=== PATIENT | male | born 1980 | race Caucasian/White ===

== ENCOUNTER 2019-01-19 21:53 | Emergency (ER) | payer MEDICAID ==
[~2019-01-19] VITALS: Ht 177.8 cm; Wt 113.6 kg
[2019-01-19 21:56] VITALS: Ht 177.8 cm; Wt 113.6 kg
[2019-01-19] MEDS ORDERED: PRAVACHOL80 MG PO (21:58)
[2019-01-19] MEDS ORDERED: OMEPRAZOLE40 MG PO (21:58)
[2019-01-19] MEDS ORDERED: HYDROCODON-ACE1 EA10 PO (21:58)
[2019-01-19] MEDS ORDERED: TOPROL XL100 MG PO (21:58)
[2019-01-19 22:26] LABS: BASOPHILS 0.1 % (0-2); EOSINOPHILS 2.2 % (0-7); HEMATOCRIT 47.2 % (42.0-54.0); HEMOGLOBIN 16.5 g/dL (13.5-17.5); IMMATURE GRANULOCYTES 0.1 % (0-5); LYMPHOCYTES 25.2 % (15-50); MCH 28.6 pg (26.0-34.0); MCV 81.8 fL (80.0-100.0); MEAN PLATELET VOLUME 9.6 fL (7.4-10.4); NEUTROPHILS 65.4 % (40-80); PLATELET COUNT 191 10x3/uL (130-400); RBC 5.77 10x6/uL (4.20-6.10); RDW 13.9 % (11.5-14.5)
[2019-01-19 22:38] LABS: COLOR YELLOW (YELLOW)
[2019-01-19 22:39] LABS: APPEARANCE CLEAR (CLEAR); BILIRUBIN NEGATIVE (NEGATIVE); GLUCOSE NEGATIVE (NEGATIVE); KETONE NEGATIVE (NEGATIVE); NITRITE NEGATIVE (NEGATIVE); PROTEIN NEGATIVE (NEGATIVE); SPECIFIC GRAVITY 1.015 (1.005-1.020); UROBILINOGEN NORMAL (NORMAL)
[2019-01-19 22:42] LABS: ALBUMIN 3.8 g/dL (3.4-5.0); ALKALINE PHOSPHATASE 56 U/L (46-116); ALT (SGPT) 84 U/L (10-68); BILIRUBIN - TOTAL 0.89 mg/dL (0.2-1.3); CALC OSMOLALITY 276 mosm/kg (275-300); CALCIUM 9.1 mg/dL (8.5-10.1); CARBON DIOXIDE 27.6 mmol/L (21.0-32.0); CHLORIDE - SERUM 102 mmol/L (98-107); CREATININE - SERUM 1.4 mg/dL (0.6-1.3); GLUCOSE 118 mg/dL (74-106); POTASSIUM - SERUM 3.6 mmol/L (3.5-5.1); PROTEIN - SERUM 6.9 g/dL (6.4-8.2); SODIUM 138 mmol/L (136-145); UREA NITROGEN 12 mg/dL (7-18); eGFR NON AFRICAN AMERICAN 61 mL/min (90-120)
[2019-01-19 22:49] LABS: AMYLASE - SERUM 49 U/L (25-115); LIPASE 115 U/L (73-393); TROPONIN-I < 0.017 ng/mL (0.000-0.060)
[2019-01-20] MEDS ORDERED: ZOFRAN ODT4 MG/UDTAB PO (02:18)
[2019-01-20] MEDS ORDERED: FLOMAX0.4 MG PO (02:18)
[2019-01-20] MEDS ORDERED: HYDROCODON-ACE1 EA10 PO (02:18)
[2019-01-20 02:50] VITALS: BP 134/73
== END 2019-01-20 02:50 | disposition home or self-care (01) ==
LOC: D.ER 21:53
PROVIDERS: Family Medicine
DX: R10.9 Unspecified abdominal pain (principal); N20.1 Calculus of ureter; I10 Essential (primary) hypertension; E78.5 Hyperlipidemia, unspecified

== ENCOUNTER 2019-02-09 00:48 | Emergency (ER) | payer MEDICAID ==
[~2019-02-09] VITALS: Ht 177.8 cm; Wt 113.6 kg
[~2019-02-09 00:48] MED LIST: FLOMAX0.4 MG PO; HYDROCODON-ACE1 EA10 PO; OMEPRAZOLE40 MG PO; PRAVACHOL80 MG PO; TOPROL XL100 MG PO; ZOFRAN ODT4 MG/UDTAB PO
[2019-02-09 00:54] VITALS: Ht 177.8 cm; Wt 113.6 kg
[2019-02-09] MEDS ORDERED: BUSPAR 15 MG TA15 MG PO (00:57)
[2019-02-09 01:20] LABS: BASOPHILS 0.3 % (0-2); EOSINOPHILS 1.9 % (0-7); HEMATOCRIT 45.6 % (42.0-54.0); HEMOGLOBIN 15.5 g/dL (13.5-17.5); IMMATURE GRANULOCYTES 0.1 % (0-5); LYMPHOCYTES 24.7 % (15-50); MCH 28.1 pg (26.0-34.0); MCV 82.6 fL (80.0-100.0); MEAN PLATELET VOLUME 9.5 fL (7.4-10.4); MONOCYTES 6.5 % (2-11); NEUTROPHILS 66.5 % (40-80); PLATELET COUNT 153 10x3/uL (130-400); RBC 5.52 10x6/uL (4.20-6.10); RDW 13.3 % (11.5-14.5); WBC 7.4 10x3/uL (4.8-10.8)
[2019-02-09] MEDS ORDERED: PROTONIX40 MG PO (01:26)
[2019-02-09 01:27] LABS: APTT 29.2 SECONDS (22.8-39.4); INR 1.02 (0.85-1.17); PROTIME 12.9 SECONDS (11.6-15.0)
[2019-02-09 01:33] LABS: ALBUMIN 3.8 g/dL (3.4-5.0); ALKALINE PHOSPHATASE 50 U/L (46-116); ALT (SGPT) 45 U/L (10-68); BILIRUBIN - TOTAL 0.68 mg/dL (0.2-1.3); CALC OSMOLALITY 277 mosm/kg (275-300); CARBON DIOXIDE 25.9 mmol/L (21.0-32.0); CHLORIDE - SERUM 105 mmol/L (98-107); CREATININE - SERUM 1.5 mg/dL (0.6-1.3); GLUCOSE 106 mg/dL (74-106); POTASSIUM - SERUM 3.5 mmol/L (3.5-5.1); PROTEIN - SERUM 6.8 g/dL (6.4-8.2); SODIUM 139 mmol/L (136-145); UREA NITROGEN 12 mg/dL (7-18); eGFR NON AFRICAN AMERICAN 56 mL/min (90-120)
[2019-02-09 01:45] LABS: CKMB 0.3 U/L (0.0-3.6); CREATINE KINASE 64 UL (21-232); MAGNESIUM - SERUM 1.9 mg/dL (1.8-2.4)
[2019-02-09 01:53] LABS: TROPONIN-I < 0.017 ng/mL (0.000-0.060)
[2019-02-09 02:45] VITALS: BP 133/86
== END 2019-02-09 02:37 | disposition home or self-care (01) ==
LOC: D.ER 00:48
PROVIDERS: Family Medicine
DX: R07.89 Other chest pain (principal); K21.9 Gastro-esophageal reflux disease without esophagitis; I10 Essential (primary) hypertension

== ENCOUNTER 2019-03-13 02:47 | Emergency (ER) | payer MEDICAID ==
[~2019-03-13] VITALS: Ht 177.8 cm; Wt 113.6 kg
[~2019-03-13 02:47] MED LIST changes: +BUSPAR 15 MG TA15 MG PO; +PROTONIX40 MG PO
[2019-03-13 02:52] VITALS: Ht 177.8 cm; Wt 113.6 kg
[2019-03-13 03:34] LABS: BASOPHILS 0.2 % (0-2); EOSINOPHILS 1.4 % (0-7); HEMATOCRIT 48.3 % (42.0-54.0); HEMOGLOBIN 16.6 g/dL (13.5-17.5); IMMATURE GRANULOCYTES 0.1 % (0-5); LYMPHOCYTES 17.7 % (15-50); MCH 27.7 pg (26.0-34.0); MCHC 34.4 g/dL (31.0-37.0); MCV 80.6 fL (80.0-100.0); MEAN PLATELET VOLUME 9.4 fL (7.4-10.4); MONOCYTES 6.6 % (2-11); RBC 5.99 10x6/uL (4.20-6.10); RDW 12.9 % (11.5-14.5); WBC 9.7 10x3/uL (4.8-10.8)
[2019-03-13 03:35] LABS: PLATELET COUNT 186 10x3/uL (130-400)
[2019-03-13 03:51] LABS: ALBUMIN 4.1 g/dL (3.4-5.0); ALKALINE PHOSPHATASE 52 U/L (46-116); ALT (SGPT) 44 U/L (10-68); BILIRUBIN - TOTAL 0.91 mg/dL (0.2-1.3); CALC OSMOLALITY 277 mosm/kg (275-300); CALCIUM 9.2 mg/dL (8.5-10.1); CARBON DIOXIDE 30.6 mmol/L (21.0-32.0); CHLORIDE - SERUM 102 mmol/L (98-107); CREATININE - SERUM 1.4 mg/dL (0.6-1.3); GLUCOSE 124 mg/dL (74-106); POTASSIUM - SERUM 3.7 mmol/L (3.5-5.1); SODIUM 140 mmol/L (136-145); UREA NITROGEN 8 mg/dL (7-18); eGFR NON AFRICAN AMERICAN 61 mL/min (90-120)
[2019-03-13 03:54] LABS: APPEARANCE CLEAR (CLEAR); BILIRUBIN NEGATIVE (NEGATIVE); COLOR YELLOW (YELLOW); GLUCOSE NEGATIVE (NEGATIVE); KETONE NEGATIVE (NEGATIVE); NITRITE NEGATIVE (NEGATIVE); PROTEIN NEGATIVE (NEGATIVE); UROBILINOGEN NORMAL (NORMAL)
[2019-03-13 03:58] LABS: AMYLASE - SERUM 48 U/L (25-115); LIPASE 101 U/L (73-393)
[2019-03-13 03:59] LABS: TROPONIN-I < 0.017 ng/mL (0.000-0.060)
[2019-03-13 04:51] VITALS: BP 135/78
== END 2019-03-13 04:52 | disposition home or self-care (01) ==
LOC: D.ER 02:47
PROVIDERS: Emergency Medicine
DX: N20.0 Calculus of kidney (principal)

== ENCOUNTER 2019-04-11 05:13 | Emergency (ER) | payer MEDICAID ==
[~2019-04-11] VITALS: Ht 177.8 cm; Wt 111.4 kg
[2019-04-11 05:17] VITALS: Ht 177.8 cm; Wt 111.4 kg
[2019-04-11] MEDS ORDERED: HYDROCODON-ACE1 EAC2 PO (05:41)
[2019-04-11] MEDS ORDERED: ZOFRAN ODT4 MG/UDTAB PO (05:42)
[2019-04-11 06:07] VITALS: BP 138/75
== END 2019-04-11 06:06 | disposition home or self-care (01) ==
LOC: D.ER 05:13
DX: N23 Unspecified renal colic (principal)

== ENCOUNTER 2019-04-19 21:03 | Emergency (ER) | payer MEDICAID ==
[~2019-04-19] VITALS: Ht 177.8 cm; Wt 109.1 kg
[~2019-04-19 21:03] MED LIST changes: +HYDROCODON-ACE1 EAC2 PO
[2019-04-19 21:18] VITALS: Ht 177.8 cm; Wt 109.1 kg
[2019-04-19 21:27] LABS: BASOPHILS 0.1 % (0-2); HEMATOCRIT 48.2 % (42.0-54.0); HEMOGLOBIN 16.9 g/dL (13.5-17.5); IMMATURE GRANULOCYTES 0.2 % (0-5); MCH 28.3 pg (26.0-34.0); MCHC 35.1 g/dL (31.0-37.0); MCV 80.6 fL (80.0-100.0); MEAN PLATELET VOLUME 9.5 fL (7.4-10.4); MONOCYTES 6.6 % (2-11); NEUTROPHILS 73.1 % (40-80); PLATELET COUNT 165 10x3/uL (130-400); RBC 5.98 10x6/uL (4.20-6.10); WBC 9.8 10x3/uL (4.8-10.8)
[2019-04-19 21:36] LABS: APTT 28.9 SECONDS (22.8-39.4); INR 1.04 (0.85-1.17); PROTIME 13.1 SECONDS (11.6-15.0)
[2019-04-19 21:40] LABS: ALBUMIN 4.3 g/dL (3.4-5.0); ALKALINE PHOSPHATASE 62 U/L (46-116); ALT (SGPT) 47 U/L (10-68); BILIRUBIN - TOTAL 0.93 mg/dL (0.2-1.3); CALC OSMOLALITY 279 mosm/kg (275-300); CALCIUM 9.2 mg/dL (8.5-10.1); CARBON DIOXIDE 30.1 mmol/L (21.0-32.0); CHLORIDE - SERUM 103 mmol/L (98-107); CREATININE - SERUM 1.6 mg/dL (0.6-1.3); GLUCOSE 94 mg/dL (74-106); POTASSIUM - SERUM 3.4 mmol/L (3.5-5.1); PROTEIN - SERUM 7.4 g/dL (6.4-8.2); SODIUM 141 mmol/L (136-145); UREA NITROGEN 9 mg/dL (7-18); eGFR NON AFRICAN AMERICAN 52 mL/min (90-120)
[2019-04-19 21:51] LABS: CKMB 0.2 U/L (0.0-3.6); CREATINE KINASE 71 UL (21-232); TROPONIN-I < 0.017 ng/mL (0.000-0.060)
[2019-04-19 22:09] LABS: UDS - AMPHET NEGATIVE QUAL (NEGATIVE); UDS - BARB NEGATIVE QUAL (NEGATIVE); UDS - BENZO NEGATIVE QUAL (NEGATIVE); UDS - COCAINE NEGATIVE QUAL (NEGATIVE); UDS - OPIATE NEGATIVE QUAL (NEGATIVE); UDS - PCP NEGATIVE QUAL (NEGATIVE); UDS - THC NEGATIVE QUAL (NEGATIVE)
[2019-04-19 22:23] LABS: APPEARANCE CLEAR (CLEAR); BILIRUBIN NEGATIVE (NEGATIVE); COLOR YELLOW (YELLOW); GLUCOSE NEGATIVE (NEGATIVE); KETONE NEGATIVE (NEGATIVE); NITRITE NEGATIVE (NEGATIVE); PROTEIN NEGATIVE (NEGATIVE); SPECIFIC GRAVITY 1.015 (1.005-1.020); UROBILINOGEN NORMAL (NORMAL)
[2019-04-20 00:14] VITALS: BP 125/75
== END 2019-04-20 00:15 | disposition home or self-care (01) ==
LOC: D.ER 21:03
PROVIDERS: Emergency Medicine
DX: R00.2 Palpitations (principal); F41.9 Anxiety disorder, unspecified; K21.9 Gastro-esophageal reflux disease without esophagitis

== ENCOUNTER 2019-05-29 02:00 | Emergency (ER) | payer MEDICAID ==
[~2019-05-29] VITALS: Ht 177.8 cm; Wt 109.1 kg
[2019-05-29 02:03] VITALS: Ht 177.8 cm; Wt 109.1 kg
[2019-05-29 02:19] LABS: BASOPHILS 0.1 % (0-2); EOSINOPHILS 1.3 % (0-7); HEMATOCRIT 51.7 % (42.0-54.0); HEMOGLOBIN 17.9 g/dL (13.5-17.5); IMMATURE GRANULOCYTES 0.2 % (0-5); LYMPHOCYTES 21.4 % (15-50); MCH 27.8 pg (26.0-34.0); MCHC 34.6 g/dL (31.0-37.0); MCV 80.3 fL (80.0-100.0); MEAN PLATELET VOLUME 10.1 fL (7.4-10.4); MONOCYTES 6.4 % (2-11); NEUTROPHILS 70.6 % (40-80); PLATELET COUNT 174 10x3/uL (130-400); RBC 6.44 10x6/uL (4.20-6.10); RDW 14.1 % (11.5-14.5); WBC 9.4 10x3/uL (4.8-10.8)
[2019-05-29 02:20] LABS: APPEARANCE HAZY (CLEAR); BILIRUBIN NEGATIVE (NEGATIVE); COLOR YELLOW (YELLOW); GLUCOSE NEGATIVE (NEGATIVE); KETONE SMALL mg/dL (NEGATIVE); NITRITE NEGATIVE (NEGATIVE); PROTEIN NEGATIVE (NEGATIVE); SPECIFIC GRAVITY 1.015 (1.005-1.020); UROBILINOGEN NORMAL (NORMAL)
[2019-05-29 02:32] LABS: ALBUMIN 4.4 g/dL (3.4-5.0); ALKALINE PHOSPHATASE 62 U/L (46-116); ALT (SGPT) 36 U/L (10-68); BILIRUBIN - TOTAL 1.22 mg/dL (0.2-1.3); CALC OSMOLALITY 281 mosm/kg (275-300); CALCIUM 9.4 mg/dL (8.5-10.1); CHLORIDE - SERUM 102 mmol/L (98-107); CREATININE - SERUM 1.5 mg/dL (0.6-1.3); GLUCOSE 109 mg/dL (74-106); POTASSIUM - SERUM 4.1 mmol/L (3.5-5.1); PROTEIN - SERUM 7.1 g/dL (6.4-8.2); SODIUM 141 mmol/L (136-145); UREA NITROGEN 12 mg/dL (7-18); eGFR NON AFRICAN AMERICAN 56 mL/min (90-120)
[2019-05-29 02:35] LABS: AMYLASE - SERUM 53 U/L (25-115); LIPASE 95 U/L (73-393); TROPONIN-I < 0.017 ng/mL (0.000-0.060)
[2019-05-29 03:59] VITALS: BP 129/85
== END 2019-05-29 03:59 | disposition home or self-care (01) ==
LOC: D.ER 02:00
PROVIDERS: Family Medicine
DX: R07.89 Other chest pain (principal)

== ENCOUNTER 2019-07-15 02:03 | Emergency (ER) | payer MEDICAID ==
[~2019-07-15] VITALS: Ht 177.8 cm; Wt 104.5 kg
[2019-07-15 02:07] VITALS: Ht 177.8 cm; Wt 104.5 kg
[2019-07-15] MEDS ORDERED: AMOXICILLIN875 MG PO (02:08)
[2019-07-15] MEDS ORDERED: MUCINEX600 MG PO (02:09)
[2019-07-15] MEDS ORDERED: MYCOSTATIN500000 UNI PO (02:09)
[2019-07-15] MEDS ORDERED: KEFLEX500 MG PO (02:24)
[2019-07-15] MEDS ORDERED: ALBUTEROL SULF8.5 GM INH (02:42)
[2019-07-15 02:50] VITALS: BP 140/82
== END 2019-07-15 02:50 | disposition home or self-care (01) ==
LOC: D.ER 02:03
DX: J01.90 Acute sinusitis, unspecified (principal)

== ENCOUNTER 2019-08-06 20:53 | Emergency (ER) | payer MEDICAID ==
[~2019-08-06] VITALS: Ht 177.8 cm; Wt 106.6 kg
[~2019-08-06 20:53] MED LIST changes: +ALBUTEROL SULF8.5 GM INH; +AMOXICILLIN875 MG PO; +KEFLEX500 MG PO; +MUCINEX600 MG PO; +MYCOSTATIN500000 UNI PO
[2019-08-06 21:03] VITALS: Ht 177.8 cm; Wt 106.6 kg
[2019-08-06] MEDS ORDERED: OMEPRAZOLE40 MG PO (21:06)
[2019-08-06 21:38] LABS: BASOPHILS 0.1 % (0-2); HEMATOCRIT 52.3 % (42.0-54.0); HEMOGLOBIN 17.6 g/dL (13.5-17.5); IMMATURE GRANULOCYTES 0.2 % (0-5); LYMPHOCYTES 22.9 % (15-50); MCHC 33.7 g/dL (31.0-37.0); MCV 86.3 fL (80.0-100.0); MEAN PLATELET VOLUME 9.1 fL (7.4-10.4); MONOCYTES 6.4 % (2-11); NEUTROPHILS 69.4 % (40-80); PLATELET COUNT 181 10x3/uL (130-400); RBC 6.06 10x6/uL (4.20-6.10); RDW 14.3 % (11.5-14.5); WBC 11.1 10x3/uL (4.8-10.8)
[2019-08-06 21:46] LABS: APTT 30.7 SECONDS (22.8-39.4); INR 1.06 (0.85-1.17); PROTIME 13.3 SECONDS (11.6-15.0)
[2019-08-06 22:35] LABS: CALC OSMOLALITY 276 mosm/kg (275-300); CALCIUM 8.7 mg/dL (8.5-10.1); CARBON DIOXIDE 27.6 mmol/L (21.0-32.0); CHLORIDE - SERUM 103 mmol/L (98-107); CREATININE - SERUM 1.4 mg/dL (0.6-1.3); GLUCOSE 116 mg/dL (74-106); POTASSIUM - SERUM 4.1 mmol/L (3.5-5.1); SODIUM 139 mmol/L (136-145); UREA NITROGEN 8 mg/dL (7-18); eGFR NON AFRICAN AMERICAN 61 mL/min (90-120)
[2019-08-06 22:53] LABS: ALBUMIN 3.4 g/dL (3.4-5.0); ALKALINE PHOSPHATASE 61 U/L (46-116); ALT (SGPT) 68 U/L (10-68); BILIRUBIN - TOTAL 0.71 mg/dL (0.2-1.3); CKMB 0.5 U/L (0.0-3.6); CREATINE KINASE 41 UL (21-232); MAGNESIUM - SERUM 1.8 mg/dL (1.8-2.4); PROTEIN - SERUM 6.6 g/dL (6.4-8.2); TROPONIN-I < 0.017 ng/mL (0.000-0.060)
[2019-08-06 23:40] VITALS: BP 116/74
== END 2019-08-06 23:40 | disposition home or self-care (01) ==
LOC: D.ER 20:53
PROVIDERS: Family Medicine
DX: R07.9 Chest pain, unspecified (principal); R11.0 Nausea; E78.5 Hyperlipidemia, unspecified; J04.0 Acute laryngitis; I10 Essential (primary) hypertension

== ENCOUNTER 2020-01-03 01:44 | Emergency (ER) | payer MEDICAID ==
[~2020-01-03] VITALS: Ht 177.8 cm; Wt 109.1 kg
[2020-01-03 02:08] VITALS: Ht 177.8 cm; Wt 109.1 kg
[2020-01-03] MEDS ORDERED: PEPCID AC20 MG PO (02:10)
[2020-01-03] MEDS ORDERED: CLARITIN 10 MG10 MG PO (02:10)
[2020-01-03] MEDS ORDERED: KLOR-CON M2020 MEQ PO (02:10)
[2020-01-03 02:34] LABS: BASOPHILS 0.3 % (0-2); EOSINOPHILS 2.5 % (0-7); HEMATOCRIT 53.8 % (42.0-54.0); HEMOGLOBIN 18.4 g/dL (13.5-17.5); IMMATURE GRANULOCYTES 0.1 % (0-5); LYMPHOCYTES 32.5 % (15-50); MCH 30.8 pg (26.0-34.0); MCHC 34.2 g/dL (31.0-37.0); MEAN PLATELET VOLUME 9.2 fL (7.4-10.4); MONOCYTES 6.6 % (2-11); PLATELET COUNT 169 10x3/uL (130-400); RBC 5.98 10x6/uL (4.20-6.10); RDW 12.5 % (11.5-14.5); WBC 7.9 10x3/uL (4.8-10.8)
[2020-01-03 02:43] LABS: ANION GAP 11.7 mmol/L (8-16); CALCIUM 9.1 mg/dL (8.5-10.1); CARBON DIOXIDE 29.2 mmol/L (21.0-32.0); CREATININE - SERUM 1.5 mg/dL (0.6-1.3); POTASSIUM - SERUM 3.9 mmol/L (3.5-5.1)
[2020-01-03 02:50] LABS: BILIRUBIN NEGATIVE (NEGATIVE); GLUCOSE NEGATIVE (NEGATIVE); KETONE NEGATIVE (NEGATIVE); NITRITE NEGATIVE (NEGATIVE); UROBILINOGEN NORMAL (NORMAL)
[2020-01-03 02:50] LABS: ALBUMIN 4.2 g/dL (3.4-5.0); BILIRUBIN - TOTAL 0.75 mg/dL (0.2-1.3); PROTEIN - SERUM 7.3 g/dL (6.4-8.2)
[2020-01-03] MEDS ORDERED: TORADOL10 MG PO (03:23)
[2020-01-03 04:04] VITALS: BP 118/78
== END 2020-01-03 04:04 | disposition home or self-care (01) ==
LOC: D.ER 01:44
PROVIDERS: Emergency Medicine
DX: R10.31 Right lower quadrant pain (principal); N20.0 Calculus of kidney; I10 Essential (primary) hypertension; E78.5 Hyperlipidemia, unspecified; K21.9 Gastro-esophageal reflux disease without esophagitis

== ENCOUNTER 2020-02-02 05:21 | Emergency (ER) | payer MEDICAID ==
[~2020-02-02] VITALS: Ht 177.8 cm; Wt 113.4 kg
[~2020-02-02 05:21] MED LIST changes: +CLARITIN 10 MG10 MG PO; +KLOR-CON M2020 MEQ PO; +PEPCID AC20 MG PO; +TORADOL10 MG PO
[2020-02-02 05:32] VITALS: Ht 177.8 cm; Wt 113.4 kg
[2020-02-02] MEDS ORDERED: AUGMENTIN 875-11 TAB PO (05:54)
[2020-02-02] MEDS ORDERED: PREDNISONE20 MG PO (05:54)
[2020-02-02] MEDS ORDERED: FLUTICASONE PRO16 GM NASAL (05:54)
[2020-02-02 06:08] VITALS: BP 147/81
== END 2020-02-02 06:08 | disposition home or self-care (01) ==
LOC: D.ER 05:21
DX: J01.90 Acute sinusitis, unspecified (principal); J33.9 Nasal polyp, unspecified; R51 Headache; I10 Essential (primary) hypertension; E78.5 Hyperlipidemia, unspecified; K21.9 Gastro-esophageal reflux disease without esophagitis

== ENCOUNTER 2020-02-27 07:08 | Day surgery (SDC) | payer MEDICAID ==
--- NOTE | 2020-02-24 13:39 | HP ---
PATIENT: CACHORRO HUBER MEDICAL RECORD: [id number] ACCOUNT: [id number] LOCATION:[facility] : 82 ADMISSION DATE: 02/27/20 PCP: RADHA GUTIERREZ MD HISTORY AND PHYSICAL EXAMINATION HISTORY OF PRESENT ILLNESS: Cachorro is a 39-year-old, he has had problems with nasal obstruction refractory to medical management, septal deviation, turbinate hypertrophy, chronic sinusitis, some hoarseness and a history of vocal cord granuloma. PAST MEDICAL HISTORY: Includes hypertension, reflux, seasonal allergies. CURRENT MEDICATIONS: Include metoprolol, omeprazole, pravastatin. ALLERGIES: DEMEROL. PHYSICAL EXAMINATION: GENERAL: He is healthy-appearing, developmentally normal. Some mild hoarseness. FACE: Normal, symmetric, no lesions. EYES: Sclerae and conjunctivae are normal. EARS: Canals and TMs normal. NOSE: Septal deviation, large inferior turbinates. ORAL CAVITY AND OROPHARYNX: Tongue protrudes in midline. Pharynx is normal. NECK: No masses, no adenopathy. CHEST: Clear. CARDIOVASCULAR: Regular rate and rhythm, no murmur. EXTREMITIES: Normal. IMPRESSION: Nasal obstruction refractory to medical management, septal deviation, turbinate hypertrophy, hoarseness, vocal cord granuloma, allergic rhinitis. PLAN: Septoplasty, bilateral inferior turbinate reduction, bilateral endoscopic middle meatal antrostomy, laryngoscopy with possible biopsy excision and we can draw blood for a RAST at that time. TRANSINT:[id number] Voice Confirmation ID: [id number] DOCUMENT ID: [id number] MARINA RAYMUNDO MD at 1339 CC: [id number] DICTATION DATE: 02/23/20 1052 [employer]ING [employer]KER: 02/23/20 1245 [facility] [address] [id number]
[~2020-02-27] VITALS: Ht 177.8 cm; Wt 336.4 kg
[~2020-02-27 07:08] MED LIST changes: +AUGMENTIN 875-11 TAB PO; +BENADRYL50 MG PO; +FLUTICASONE PRO16 GM NASAL; +PREDNISONE20 MG PO
[2020-02-27 07:26] LABS: HEMATOCRIT 51.3 % (42.0-54.0); HEMOGLOBIN 17.9 g/dL (13.5-17.5); MCH 31.4 pg (26.0-34.0); MCHC 34.9 g/dL (31.0-37.0); MEAN PLATELET VOLUME 9.4 fL (7.4-10.4); RBC 5.7 10x6/uL (4.20-6.10); RDW 13.9 % (11.5-14.5); WBC 4.6 10x3/uL (4.8-10.8)
[2020-02-27 08:08] VITALS: BP 116/63; Ht 177.8 cm; Wt 336.4 kg
--- NOTE | 2020-02-27 12:25 | NUR ---
DC INSTRUCTIONS GIVEN TO PT. STATES UNDERSTANDING. DC'D IV CATH FULLY INTACT. WILL DC SHORTY
--- NOTE | 2020-02-27 12:48 | NUR ---
PT LEFT UNIT VIA WC AT 1231
--- NOTE | 2020-02-28 15:58 | OP ---
PATIENT NAME: CACHORRO HUBER MEDICAL RECORD: [id number] :82 [facility] ADMISSION DATE: SURGEON: MARINA RAYMUNDO MD DATE OF OPERATION: 02/27/2020 PREOPERATIVE DIAGNOSES: Bilateral chronic maxillary sinusitis, nasal obstruction, septal deviation, turbinate hypertrophy, and vocal cord granuloma. POSTOPERATIVE DIAGNOSES: Bilateral chronic maxillary sinusitis, nasal obstruction, septal deviation, turbinate hypertrophy, and vocal cord granuloma. PROCEDURE: Bilateral endoscopic middle meatal antrostomy, septoplasty, bilateral inferior turbinate reduction, and microsuspension laryngoscopy. SURGEON: Marina Raymundo MD ANESTHESIA: General orotracheal. BLOOD LOSS: Less than 5 cc. SPECIMENS: Nasal septal cartilage and inferior turbinate tissue. COMPLICATIONS: None. DISPOSITION: Recovery stable. FINDINGS: Microsuspension laryngoscopy was negative for any vocal cord lesions. NASAL PACKING: Victoria splints bilaterally. PROCEDURE: The patient was brought to the operating room and placed in supine position, sedated and intubated by anesthesia. Both sides of the nose were examined using a headlight nasal speculum, both sides of septum, floor of the nose and inferior turbinates and middle turbinates were injected with a total of less than 2 mL of 1% lidocaine with 1:100,000 epinephrine and Afrin pledgets were placed on each side. The table was turned 90 degrees. Head drape was applied and he was positioned for laryngoscopy. Using a Kleinaureliaer Tim. laryngoscope, the hypopharynx, vallecula, base of tongue, supraglottic larynx were examined. The postcricoid area had history of vocal cord granuloma looked very closely at both sides. Using the microscope 400-mm lens really unremarkable exam, little erythema, but no lesion or ulcer. Laryngoscope was removed. Plastic upper tooth guard was removed. He was then positioned, prepped and draped in usual fashion for nasal surgery. All the Afrin pledgets were removed. The right side was addressed first. A 0-degree scope was inserted in septal deviation, but the inferior middle turbinates were unremarkable. The middle turbinate, the nasal vault and nasopharynx were all normal. The middle turbinate was medialized slightly, curved olive tip suction was inserted into the maxillary sinus. Backbiter was inserted and used to make a larger opening and then a straight biter was used to take down some inferior tissue. There was polypoid and blocking things up. Then the 30-degree scope was used to examine the sinus really fairly normal, maybe a little bit of mucosal edema, but no lesions, masses or drainage was visualized. The left side was then addressed similarly media, middle turbinate was medialized. The curved olive tip suction was inserted into the maxillary sinus and then a backbiter was used to enlarge the opening. Again, the 30-degree scope was used to visualize OPERATIVE REPORT [id number] MAYOCACHORRO Scales the sinus and really looked normal. The suction was placed in the dependent portion. There was no drainage. Both maxillary sinuses were irrigated with a 60 cc syringe repeatedly, everything returned clear. Then [place] incision was made on the left side of the nose. Ipsilateral mucoperichondrial flap was elevated. The redundant nasal septal cartilage that was curled up to the floor of the nose on the left side was removed with a caudal. Chisel was used to remove the bony portion of that. Then, the bony cartilaginous junction was disarticulated and a contralateral posterior mucoperichondrial flap was elevated. Scissors used to make a cut above and below the bony spur that was removed. Some relaxing incision was made in the anterior septal cartilage. This allowed the septum to lay flat. 4-0 chromic was used to close the [place] incision. Both inferior turbinates were medialized with a freer. [place] was used to take down the inferior redundant portion of the turbinates and suction cautery was used to stop any bleeding. They were both outfractured. The nose and nasopharynx were suctioned everything was clean, dry septums intact midline. Victoria splints with mupirocin ointment were placed bilaterally and sutured to the anterior membranous septum with a 2-0 Prolene on a Casa needle. He was awakened, extubated, and transported to recovery in good condition. No complications. TRANSINT:[id number] Voice Confirmation ID: [id number] DOCUMENT ID: [id number] MARINA RAYMUNDO MD at 1558 CC: [id number] DICTATION DATE: 02/27/20 1252 MANAGER CAR: 02/27/202207 [facility] 02/27/[id number] [place] [address]
[2020-02-28] MEDS ORDERED: HYDROCODON-ACE1 EAC7 (22:17)
== END 2020-02-27 12:31 | disposition home or self-care (01) ==
LOC: D.OPS 07:08 → D.PAN 11:30 → D.OPS 11:45
PROVIDERS: Anesthesiology; ATTEND Otolaryngology
DX: J32.0 Chronic maxillary sinusitis (principal); J34.89 Other specified disorders of nose and nasal sinuses; J34.2 Deviated nasal septum; J34.3 Hypertrophy of nasal turbinates; J38.3 Other diseases of vocal cords

== ENCOUNTER 2020-02-28 21:59 | Emergency (ER) | payer MEDICAID ==
[~2020-02-28] VITALS: Ht 177.8 cm; Wt 113.6 kg
[2020-02-28 22:14] VITALS: Ht 177.8 cm; Wt 113.6 kg
[2020-02-28] MEDS ORDERED: HYDROCODON-ACE1 EAC7 (22:17)
[2020-02-28 23:18] LABS: BASOPHILS 0.1 % (0-2); EOSINOPHILS 0.8 % (0-7); HEMATOCRIT 49.7 % (42.0-54.0); HEMOGLOBIN 17.2 g/dL (13.5-17.5); IMMATURE GRANULOCYTES 0.1 % (0-5); LYMPHOCYTES 18.5 % (15-50); MCH 31.3 pg (26.0-34.0); MCHC 34.6 g/dL (31.0-37.0); MCV 90.4 fL (80.0-100.0); MONOCYTES 6.1 % (2-11); NEUTROPHILS 74.4 % (40-80); PLATELET COUNT 174 10x3/uL (130-400); RDW 13.6 % (11.5-14.5)
[2020-02-28 23:23] LABS: WBC 9.6 10x3/uL (4.8-10.8)
[2020-02-28 23:34] LABS: CALCIUM 8.5 mg/dL (8.5-10.1); CARBON DIOXIDE 28.1 mmol/L (21.0-32.0); CHLORIDE - SERUM 103 mmol/L (98-107); CREATININE - SERUM 1.4 mg/dL (0.6-1.3); POTASSIUM - SERUM 3.5 mmol/L (3.5-5.1); SODIUM 139 mmol/L (136-145); UREA NITROGEN 11 mg/dL (7-18); eGFR NON AFRICAN AMERICAN 61 mL/min (90-120)
[2020-02-28 23:43] LABS: ALBUMIN 3.9 g/dL (3.4-5.0); ALKALINE PHOSPHATASE 47 U/L (30-120); ALT (SGPT) 46 U/L (10-68); AMYLASE - SERUM 36 U/L (25-115); BILIRUBIN - TOTAL 0.78 mg/dL (0.2-1.3); LIPASE 56 U/L (73-393); PROTEIN - SERUM 6.8 g/dL (6.4-8.2)
[2020-02-28 23:46] LABS: CALC OSMOLALITY 279 mosm/kg (275-300); GLUCOSE 161 mg/dL (74-106); TROPONIN-I < 0.017 ng/mL (0.000-0.060)
[2020-02-29 00:03] LABS: BILIRUBIN NEGATIVE (NEGATIVE); GLUCOSE NEGATIVE (NEGATIVE); KETONE NEGATIVE (NEGATIVE); NITRITE NEGATIVE (NEGATIVE); UROBILINOGEN NORMAL (NORMAL)
[2020-02-29 00:04] LABS: BACTERIA NONE SEEN /hpf (NEGATIVE); EPITHELIAL CELLS 0-5 /hpf (0-5); RED CELLS - URINE 0-5 /hpf (0-5); WHITE CELLS - URINE 0-5 /hpf (NEGATIVE)
[2020-02-29] MEDS ORDERED: BENTYL10 MG PO (03:15)
[2020-02-29] MEDS ORDERED: ZOFRAN4 MG PO (03:15)
[2020-02-29 03:37] VITALS: BP 143/94
== END 2020-02-29 03:39 | disposition home or self-care (01) ==
LOC: D.ER 21:59
PROVIDERS: Family Medicine
DX: R10.9 Unspecified abdominal pain (principal); R04.0 Epistaxis; I10 Essential (primary) hypertension; E78.5 Hyperlipidemia, unspecified; K21.9 Gastro-esophageal reflux disease without esophagitis

== ENCOUNTER 2020-05-19 01:11 | Emergency (ER) | payer MEDICAID ==
[~2020-05-19] VITALS: Ht 177.8 cm; Wt 109.1 kg
[~2020-05-19 01:11] MED LIST changes: +BENTYL10 MG PO; +HYDROCODON-ACE1 EAC7; +ZOFRAN4 MG PO
[2020-05-19 01:42] VITALS: Ht 177.8 cm; Wt 109.1 kg
[2020-05-19 02:25] LABS: BASOPHILS 0.1 % (0-2); EOSINOPHILS 2.3 % (0-7); HEMATOCRIT 49.6 % (42.0-54.0); HEMOGLOBIN 17.6 g/dL (13.5-17.5); IMMATURE GRANULOCYTES 0.3 % (0-5); LYMPHOCYTES 28.2 % (15-50); MCH 32.4 pg (26.0-34.0); MCHC 35.5 g/dL (31.0-37.0); MCV 91.2 fL (80.0-100.0); MEAN PLATELET VOLUME 9.4 fL (7.4-10.4); MONOCYTES 7.5 % (2-11); NEUTROPHILS 61.6 % (40-80); PLATELET COUNT 173 10x3/uL (130-400); RBC 5.44 10x6/uL (4.20-6.10); RDW 12.4 % (11.5-14.5); WBC 7.9 10x3/uL (4.8-10.8)
[2020-05-19 02:29] LABS: CALC OSMOLALITY 272 mosm/kg (275-300); CALCIUM 9.1 mg/dL (8.5-10.1); CARBON DIOXIDE 27.3 mmol/L (21.0-32.0); CHLORIDE - SERUM 102 mmol/L (98-107); CREATININE - SERUM 1.4 mg/dL (0.6-1.3); GLUCOSE 114 mg/dL (74-106); POTASSIUM - SERUM 3.4 mmol/L (3.5-5.1); SODIUM 137 mmol/L (136-145); UREA NITROGEN 8 mg/dL (7-18); eGFR NON AFRICAN AMERICAN 61 mL/min (90-120)
[2020-05-19 02:30] LABS: APTT 27.3 SECONDS (22.8-39.4); INR 0.91 (0.85-1.17); PROTIME 12.2 SECONDS (11.6-15.0)
[2020-05-19 02:45] LABS: ALBUMIN 4.2 g/dL (3.4-5.0); ALKALINE PHOSPHATASE 54 U/L (30-120); ALT (SGPT) 43 U/L (10-68); BILIRUBIN - TOTAL 0.54 mg/dL (0.2-1.3); CKMB 0.4 U/L (0.0-3.6); CREATINE KINASE 50 UL (21-232); PROTEIN - SERUM 7.1 g/dL (6.4-8.2); TROPONIN-I < 0.017 ng/mL (0.000-0.060)
[2020-05-19 04:04] VITALS: BP 147/80
== END 2020-05-19 04:04 | disposition home or self-care (01) ==
LOC: D.ER 01:11
PROVIDERS: Family Medicine
DX: E87.6 Hypokalemia (principal); R07.9 Chest pain, unspecified; R51 Headache; F41.9 Anxiety disorder, unspecified; R20.0 Anesthesia of skin; I10 Essential (primary) hypertension; E78.5 Hyperlipidemia, unspecified; K21.9 Gastro-esophageal reflux disease without esophagitis